=== PATIENT | male | born 1960 | race Caucasian/White ===

== ENCOUNTER 2022-02-22 17:29 | Emergency (ER) | payer OTHER ==
[~2022-02-22] VITALS: Ht 180 cm; Wt 73.0 kg
--- NOTE | 2022-02-22 18:27 | ED Psychosocial ---
General Chief Complaint: Psych/Social Disorder Stated Complaint: HALLUCINATIONS Nursing Triage Note: PT WITH FRIEND, STATES HE HAS BEEN SEEING AND HEARING THINGS FOR THE PAST COUPLE MONTHS. TAKES MEDS FOR PARKINSONS DISEASE. Source: patient Exam Limitations: no limitations (RICHIE CASILLAS) History of Present Illness Date Seen by Provider: Feb 22, 2022 Time Seen by Provider: 18:23 Initial Comments Patient is a 61-year-old male who presents to the ED with a friend for auditory and visual hallucinations. According to patient and friend symptoms have been ongoing for the past 2 to 3 months. Patient reports hearing things as well as seeing things. Patient bought a gun as he was concerned for his safety at home. According to his friend at bedside he contacted PD several times regarding someone trying to get in his house and people surrounding his home. According to his friend PD did take his gun. Patient is currently afraid to stay at home and currently living in a hotel. Patient is from [place]. Friend was concerned today as he kept on mentioning that "people are trying to get him". [facility]. He is currently on carbidopa-levodopa, and selegiline. He states he stopped the selegiline 2 weeks ago as he thought the medication was causing his symptoms. Patient symptoms have continued to get worse. he denies of any suicidal ir homicidal thoughts. His friend is concerned for his safety. Patient denies fever, chills, headache, dizziness, vomiting, diarrhea, chest pain, shortness of breath (RICHIE CASILLAS) Allergies and Home Medications Allergies Coded Allergies: No Known Drug Allergies (Unverified , 02/22/22) Patient Home Medication List Home Medication List Reviewed: Yes (RICHIE CASILLAS) Review of Systems Constitutional: No chills, No malaise, No weakness EENTM: No hearing loss, No blurred vision, No double vision Respiratory: No cough, No dyspnea on exertion, No short of breath Cardiovascular: No chest pain, No edema Gastrointestinal: No abdominal pain, No diarrhea, No nausea, No vomiting Genitourinary: No decreased output, No discharge Musculoskeletal: No back pain, No joint pain, No joint swelling, No muscle pain, No muscle stiffness Skin: No change in color, No change in hair/nails (RICHIE CASILLAS) All Other Systems Reviewed Negative Unless Noted: Yes (RICHIE CASILLAS) Past Ebqhtoa-Kfgkpb-Czufzj Hx Patient Social History Tobacco Use?: No Substance use?: No Alcohol Use?: Yes Alcohol Frequency: Rarely (RICHIE CASILLAS) Immunizations Up To Date 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 oz. 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, no motor/sensory deficits, alert, normal mood/affect, oriented x 3 Appearance/Memory: appropriate appearance, appropriate insight Behavior/Eye Contact: cooperative, good eye contact Thoughts/Hallucinations: normal thought pattern, no apparent hallucination Skin: normal color, warm/dry (RICHIE CASILLAS) Suicide Risk Suicide Risk Suicide Risk Level / RN Screen: Low Low Suicide Risk Level []Suicidal Ideation WITHOUT method, intent, plan or behavior more than a month ago []]Modifiable risk factors and strong protective factors []No reported history of suicidal ideation or behavior []Patient reports/exhibits symptoms consistent with psychosis []Patient reports a plan that would be unrealistic/impossible to complete and intent []Suicide attempt prior to arrival (Indicates at LEAST Low Suicide Risk, co nsider other risk factors) Moderate Suicide Risk Level: []Suicidal ideation with method, WITHOUT plan, intent or behavior in the past month []Multiple risk factors and few protective factors []Patient reports intent to follow through on plan to end life if allowed to leave hospital, and has attempted to elope from the hospital High Suicide Risk Level: [] Suicidal ideation with intent or intent with a plan in the past month [] Patient has harmed self or attempted suicide while in the hospital [] Patient has hx of or current Command Auditory hallucinations to harm self or others that they follow without hesitation [] Patient refuses to disclose plan, and indicates intent to complete [] Patient reports plan that is possible to accomplish and/or has means to complete Risk factors supporting recommendation: [] Non-compliance with treatment (acute or chronic) [] Patient has access to or owns firearms and/or stockpiled medications [] Hx Impulsive behavior [] Pending incarceration or homelessness [] Sexual abuse [] Family history and/or exposure to suicide [] Adverse childhood experiences [] Exposure to violence or negative socio-political cultural, and economic forces [] Current or hx of substance use/abuse [] Chronic physical pain or other acute medical problem (AIDS, COPD, Cancer, etc) [] Perceived burden on family or others [] Patient has attempted to elope [] Unable to answer and/or unable to identify [] Refuses to agree to a safety plan Protective Factors supporting recommendation: [] Identifies reasons for living [] Future plans/goals [] Engaged in work or School [] Good family support network [] Good social support network [] Responsibility to family [] Belief that suicide is immoral, against their gnosticism beliefs [] High spirituality and involvement in pentecostalism community [] Fear of or dying due to pain and suffering [] Established outpt psychiatric services [] Unable to answer and/or unable to identify Risk Assessment Tool Score: Low (RICHIE CASILLAS) Progress/Results/Core Measures Results/Orders Lab Results Laboratory Tests Test 02/22/22 19:00 02/22/22 19:06 02/22/22 19:13 Range/Units Urine Color YELLOW Urine Clarity CLEAR Urine pH 6.0 5-9 Urine Specific [place] 1.025 H 1.016-1.022 Urine Protein NEGATIVE NEGATIVE Urine Glucose (UA) NEGATIVE NEGATIVE Urine Ketones TRACE H NEGATIVE Urine Nitrite NEGATIVE NEGATIVE Urine Bilirubin NEGATIVE NEGATIVE Urine Urobilinogen 0.2 < = 1.0 MG/DL Urine Leukocyte Esterase NEGATIVE NEGATIVE Urine RBC (Auto) NEGATIVE NEGATIVE Urine RBC RARE /HPF Urine WBC NONE /HPF Urine Squamous Epithelial Cells NONE /HPF Urine Crystals NONE /LPF Urine Bacteria TRACE /HPF Urine Casts NONE /LPF Urine Mucus MODERATE H /LPF Urine Culture Indicated NO Urine Opiates Screen NEGATIVE NEGATIVE Urine Oxycodone Screen NEGATIVE NEGATIVE Urine Methadone Screen NEGATIVE NEGATIVE Urine Propoxyphene Screen NEGATIVE NEGATIVE Urine Barbiturates Screen NEGATIVE NEGATIVE Ur Tricyclic Antidepressants Screen NEGATIVE NEGATIVE Urine Phencyclidine Screen NEGATIVE NEGATIVE Urine Amphetamines Screen NEGATIVE NEGATIVE Urine Methamphetamines Screen NEGATIVE NEGATIVE Urine Benzodiazepines Screen NEGATIVE NEGATIVE Urine Cocaine Screen NEGATIVE NEGATIVE Urine Cannabinoids Screen NEGATIVE NEGATIVE White Blood Count 5.9 4.3-11.0 10^3/uL Red Blood Count 4.22 L 4.30-5.52 10^6/uL Hemoglobin 13.2 L 13.3-17.7 g/dL Hematocrit 39 L 40-54 % Mean Corpuscular Volume 92 80-99 fL Mean Corpuscular Hemoglobin 31 25-34 pg Mean Corpuscular Hemoglobin Concent 34 32-36 g/dL Red Cell Distribution Width 12.6 10.0-14.5 % Platelet Count 207 130-400 10^3/uL Mean Platelet Volume 9.4 9.0-12.2 fL Immature Granulocyte % (Auto) 0 % Neutrophils (%) (Auto) 58 42-75 % Lymphocytes (%) (Auto) 29 12-44 % Monocytes (%) (Auto) 10 0-12 % Eosinophils (%) (Auto) 3 0-10 % Basophils (%) (Auto) 1 0-10 % Neutrophils # (Auto) 3.4 1.8-7.8 10^3/uL Lymphocytes # (Auto) 1.7 1.0-4.0 10^3/uL Monocytes # (Auto) 0.6 0.0-1.0 10^3/uL Eosinophils # (Auto) 0.2 0.0-0.3 10^3/uL Basophils # (Auto) 0.0 0.0-0.1 10^3/uL Immature Granulocyte # (Auto) 0.0 0.0-0.1 10^3/uL Sodium Level 138 135-145 MMOL/L Potassium Level 3.7 3.6-5.0 MMOL/L Chloride Level 104 98-107 MMOL/L Carbon Dioxide Level 26 21-32 MMOL/L Anion Gap 8 5-14 MMOL/L Blood Urea Nitrogen 18 7-18 MG/DL Creatinine 0.92 0.60-1.30 MG/DL Estimat Glomerular Filtration Rate 96 BUN/Creatinine Ratio 20 Glucose Level 101 70-105 MG/DL Calcium Level 9.7 8.5-10.1 MG/DL Corrected Calcium 9.6 8.5-10.1 MG/DL Total Bilirubin 1.3 H 0.1-1.0 MG/DL Aspartate Amino Transf (AST/SGOT) 14 5-34 U/L Alanine Aminotransferase (ALT/SGPT) 8 0-55 U/L Alkaline Phosphatase 57 40-136 U/L Total Protein 7.1 6.4-8.2 GM/DL Albumin 4.1 3.2-4.5 GM/DL Salicylates Level < 5.0 L 5.0-20.0 MG/DL Acetaminophen Level < 10 L 10-30 UG/ML Serum Alcohol < 10 <10 MG/DL Influenza Type A (RT-PCR) Not Detected Not Detecte Influenza Type B (RT-PCR) Not Detected Not Detecte SARS-CoV-2 RNA (RT-PCR) Not Detected Not Detecte (ISSAC NOGUEIRA MD) My Orders Orders - ISSAC NOGUEIRA MD Carbidopa/Levodopa 25/100 (Sinemet 25/10 (02/22/22 19:54) (ISSAC NOGUEIRA MD) Medications Given in ED Current Medications Medications Dose Ordered Sig/Damaris Route Start Time Stop Time Status Last Admin Dose Admin Carbidopa/Levodopa 1 ea ONCE ONCE PO 02/22/22 19:15 02/22/22 21:12 DC 02/22/22 20:00 1 EA Carbidopa/Levodopa 2 ea ONCE ONCE PO 02/22/22 21:00 02/22/22 21:01 DC 02/22/22 21:11 2 EA Lorazepam 0.5 mg ONCE ONCE PO 02/22/22 22:00 02/22/22 22:03 DC 02/22/22 22:08 0.5 MG (ISSAC NOGUEIRA MD) Vital Signs/I&O 02/22/22 02/22/22 17:59 22:55 Temp 36.5 Pulse 70 79 Resp 20 20 B/P (MAP) 135/81 (99) 131/71 Pulse Ox 97 99 O2 Delivery Room Air Room Air (ISSAC NOGUEIRA MD) Blood Pressure Mean: 99 Departure Communication (PCP) Patient presents ED with hallucinations. Patient states hallucinations have been ongoing for the past 2 or 3 months. History of Parkinson's. Currently on Sinemet and selegiline. He states he stopped the selegiline as he thought this medication was causing his symptoms. He is continue having these hallu cinations. Friend at bedside concern for patient's safety at home as he has been seeing patient surrounding his house and is terrified. Patient bought a gun but the gun is currently in police custody. [facility]. Patient has no suicidal or homicidal thoughts. Due to his current complaints lab work was ordered and behavioral health asses sment. Patient denies headache, dizziness, visual changes, vomiting. CT scan the head negative for acute abnormality. Chronic ischemic changes noted. Lab work was otherwise unremarkable. EKG without evidence of ST elevation or pression. No chest pain, abdominal pain fever, chills. No meningeal signs. Urinalysis negative for infection. Patient is scheduled to follow-up with his primary care physician early next week. Patient was evaluated by behavioral health who recommends discharge at this time with a safety plan. Patient and friend agree with this plan of action. Patient was given his sinemet here for his shaking. Concerning that patient symptoms may be secondary to his Parkinson's, medications, psych. Patient is going to go home with his friend at this time. He feels safe to go home. He is requesting something to help him sleep and his anxiety which I will discharge with Ativan. If any worsening symptoms he will return back to ED. Patient lives in [place]. Most of his care is in [place] and he requested to go back. (RICHIE CASILLAS) Impression Primary Impression: Hallucinations Disposition: 01 HOME, SELF-CARE Condition: Stable Departure-Patient Inst. Decision time for Depature: 22:02 (RICHIE CASILLAS) Referrals: [facility],LOCAL PHYSICIAN (PCP) Primary Care Physician Patient Instructions: Parkinson Disease Add. Discharge Instructions: Strongly recommend follow-up your primary care physician to discuss further treatment All discharge instructions reviewed with patient and/or family. Voiced understanding. ATTENDING PHYSICIAN NOTE: I was physically present as attending physician in the emergency department during the care of this patient, but I was not directly involved in the decision making or delivery of care for this patient. (ISSAC NOGUEIRA MD) RICHIE CASILLAS Feb 22, 2022 18:27 ISSAC NOGUEIRA MD Feb 23, 2022 05:09
--- NOTE | 2022-02-22 19:03 | Diagnostic Imaging Report ---
INDICATION: Hallucinations. Altered mental status. TECHNIQUE: Routine non contrast-enhanced axial images were obtained from the skull base to the vertex. Auto Exposure Controls were utilized during the CT exam to meet ALARA standards for radiation dose reduction COMPARISON: None. FINDINGS: The ventricles and cortical sulci are diffusely prominent, compatible with age-related volume loss. There are confluent areas of abnormal, low attenuation in the periventricular white matter. This is consistent with small vessel ischemic changes; age-indeterminate. There is no prior study available for comparison. There is no midline shift or mass-effect. No acute intra-axial hemorrhage is seen. There are no abnormal areas of increased or decreased density to suggest acute hemorrhage or edema. No extra-axial masses or collections are present. The bony calvarium is intact. The visualized paranasal sinuses are unremarkable. The mastoid air cells are clear. IMPRESSION: 1. No acute intracranial abnormality. No CT evidence of mass, acute infarct or intracranial hemorrhage. 2. Small vessel ischemic changes in the periventricular and subcortical white matter; likely chronic. Dictated by: Dictated on workstation # [id number]
[2022-02-22 19:13] LABS: BASOPHILS % (AUTO) 1 % (0-10); EOSINOPHILS # (AUTO) 0.2 10^3/uL (0.0-0.3); EOSINOPHILS % (AUTO) 3 % (0-10); HEMATOCRIT 39 % (40-54); HEMOGLOBIN 13.2 g/dL (13.3-17.7); LYMPHOCYTES # (AUTO) 1.7 10^3/uL (1.0-4.0); LYMPHOCYTES % (AUTO) 29 % (12-44); MEAN CORPUSCULAR HEMOGLOBIN 31 pg (25-34); MEAN CORPUSCULAR HGB CONC 34 g/dL (32-36); MEAN CORPUSCULAR VOLUME 92 fL (80-99); MEAN PLATELET VOLUME 9.4 fL (9.0-12.2); MONOCYTES # (AUTO) 0.6 10^3/uL (0.0-1.0); MONOCYTES % (AUTO) 10 % (0-12); NEUTROPHILS # (AUTO) 3.4 10^3/uL (1.8-7.8); NEUTROPHILS % (AUTO) 58 % (42-75); PLATELET COUNT 207 10^3/uL (130-400); WHITE BLOOD COUNT 5.9 10^3/uL (4.3-11.0)
[2022-02-22] MEDS ORDERED: SINEMET 25/100 (CARBIDOPA/LEVODOPA) TAB PO ONE ×2 (19:15→21:00)
[2022-02-22 19:21] LABS: BILIRUBIN,URINE NEGATIVE (NEGATIVE); CLARITY,URINE CLEAR; COLOR,URINE YELLOW; GLUCOSE, URINE (UA) NEGATIVE (NEGATIVE); KETONES,URINE TRACE (NEGATIVE); LEUKOCYTE ESTERASE ,URINE NEGATIVE (NEGATIVE); NITRITE,URINE NEGATIVE (NEGATIVE); PROTEIN,URINE NEGATIVE (NEGATIVE)
[2022-02-22 19:33] LABS: ALBUMIN 4.1 GM/DL (3.2-4.5); CHLORIDE 104 MMOL/L (98-107); POTASSIUM 3.7 MMOL/L (3.6-5.0); SODIUM 138 MMOL/L (135-145)
[2022-02-22 19:34] LABS: CALCIUM 9.7 MG/DL (8.5-10.1)
[2022-02-22 19:35] LABS: GLUCOSE 101 MG/DL (70-105)
[2022-02-22 19:36] LABS: CARBON DIOXIDE 26 MMOL/L (21-32); TOTAL PROTEIN 7.1 GM/DL (6.4-8.2)
[2022-02-22 19:37] LABS: BILIRUBIN,TOTAL 1.3 MG/DL (0.1-1.0)
[2022-02-22 19:39] LABS: ALKALINE PHOSPHATASE 57 U/L (40-136); CREATININE SERUM 0.92 MG/DL (0.60-1.30); GFR ESTIMATED 96
[2022-02-22 19:40] LABS: BUN/CREATININE RATIO 20
[2022-02-22 19:42] LABS: ALANINE AMINOTRANSFERASE 8 U/L (0-55); SALICYLATE < 5.0 MG/DL (5.0-20.0)
[2022-02-22 19:46] LABS: ACETAMINOPHEN < 10 UG/ML (10-30)
[2022-02-22 19:53] LABS: AMPHETAMINE SCREEN, URINE NEGATIVE (NEGATIVE); BARBITURATE SCREEN URINE NEGATIVE (NEGATIVE); BENZODIAZEPINES SCREEN URINE NEGATIVE (NEGATIVE); CANNABINOID SCREEN, URINE NEGATIVE (NEGATIVE); COCAINE SCREEN URINE NEGATIVE (NEGATIVE); METHADONE STAT NEGATIVE (NEGATIVE); OPIATE SCREEN URINE NEGATIVE (NEGATIVE); OXYCODONE STAT NEGATIVE (NEGATIVE); PROPOXYPHENE STAT NEGATIVE (NEGATIVE); TRICYCLIC ANTIDEPRESSANTS SCRE NEGATIVE (NEGATIVE)
[2022-02-22] MEDS ORDERED: SINEMET 25/100 (CARBIDOPA/LEVODOPA) TAB ONE (19:54)
[2022-02-22 20:05] LABS: BACTERIA,URINE TRACE /HPF; RBC,URINE RARE /HPF
[2022-02-22] MEDS ORDERED: RX-LORAZEPAM (ATIVAN) 0.5 MG TAB PPK#4 PO ONE (22:00)
[2022-02-22 22:55] VITALS: BP 131/71
== END 2022-02-22 22:55 | disposition home or self-care (01) ==
LOC: ER 17:36
DX: R44.0 Auditory hallucinations (principal); R44.1 Visual hallucinations; Z20.822 Contact with and (suspected) exposure to COVID-19
CPT/HCPCS: 36415; 70450; 80053; 80306; 80320; 80329; 81000; 85025; 87636; 93005